=== PATIENT | female | born 1935 | race Two or more races ===

== ENCOUNTER 2019-10-27 12:24 | Outpatient (CLI) | payer OTHER ==
[2019-10-27] MEDS ORDERED: ATORVASTATIN CA80 MG ORAL (15:44)
[2019-10-27] MEDS ORDERED: OYSTER SHELL C1 EA15 PO (15:44)
[2019-10-27] MEDS ORDERED: CARVEDILOL25 MG ORAL (15:44)
[2019-10-27] MEDS ORDERED: ALLOPURINOL300 M1 ORAL (15:44)
[2019-10-27] MEDS ORDERED: POTASSIUM PO (15:44)
[2019-10-27] MEDS ORDERED: VITAMIN D2 PO (15:44)
[2019-10-27] MEDS ORDERED: LEVEMIR100 UNIT/1 SUBQ (15:44)
[2019-10-27] MEDS ORDERED: HYDROCHLOROTH12.5 MG ORAL (15:44)
[2019-10-27] MEDS ORDERED: NOVOLOG100 UNIT/4 SQ (15:44)
[2019-10-27] MEDS ORDERED: FUROSEMIDE80 M1 ORAL (15:44)
[2019-10-27] MEDS ORDERED: AMLODIPINE BESY10 MG ORAL (15:44)
== END 2019-10-27 14:24 | disposition home or self-care (01) ==
DX: K31.9 Disease of stomach and duodenum, unspecified (principal); I10 Essential (primary) hypertension; E11.9 Type 2 diabetes mellitus without complications; E78.00 Pure hypercholesterolemia, unspecified

== ENCOUNTER 2019-11-15 07:13 | Day surgery (SDC) | payer OTHER ==
[~2019-11-15] VITALS: Ht 162.6 cm; Wt 84.4 kg
[2019-11-15] VITALS (10 sets, daily range): BP systolic 129–140; BP diastolic 51–65
[~2019-11-15 07:13] MED LIST: ALLOPURINOL300 M1 ORAL; AMLODIPINE BESY10 MG ORAL; ATORVASTATIN CA80 MG ORAL; CARVEDILOL25 MG ORAL; FUROSEMIDE80 M1 ORAL; HYDROCHLOROTH12.5 MG ORAL; LEVEMIR100 UNIT/1 SUBQ; NOVOLOG100 UNIT/4 SQ; OYSTER SHELL C1 EA15 PO; POTASSIUM PO; VITAMIN D2 PO
[2019-11-15] MEDS ORDERED: LR 1000ml 1,000 ML IVLG SCH ×2 (07:50→08:00)
--- NOTE | 2019-11-15 07:55 | Anethesia Preoperative Eval ---
Anesthesia Pre-op PMH/ROS General Date of Evaluation: Nov 15, 2019 Time of Evaluation: 07:51 Anesthesiologist: walker ASA Score: ASA 4 Mallampati Score Class I : Soft palate, uvula, fauces, pillars visible Class II: Soft palate, uvula, fauces visible Class III: Soft palate, base of uvula visible Class IV: Only hard plate visible Mallampati Classification: Class II Surgeon: antoine Diagnosis: ascites, anemia Surgical Procedure: egd/eus Anesthesia History: none Social History: smoking Family History: no anesthesia problems Allergies: Coded Allergies: No Known Allergies (Unverified , 11/12/19) Medications: see eMAR Patient NPO?: Yes Past Medical History Cardiovascular: Reports: HTN, other - hypercholesterolemia Endocrine: Reports: DM HEENT: Reports: cataract (L), cataract (R) Hematology/Immune: Reports: anemia Musculoskeletal/Integumentary: Reports: OA, other - gout PSxH Narrative: hysterectomy, umbilical hernia repair, cholecystectomy Anesthesia Pre-op Phys. Exam Physician Exam Constitutional: NAD Neurologic: CN 2-12 intact Cardiovascular: RRR Respiratory: CTA Gastrointestinal: S/NT/ND Airway Exam Mallampati Score: Class II MO: limited Neck: flexible TMD: 2fb ROM: limited Anesthesia Pre-op A/P Labs Microbiology Date/Time Source Procedure Growth Status 11/12/19 08:30 Nasopharynx SARS-CoV-2 RdRp Gene Assay - Final Complete Risk Assessment & Plan Assessment: asa4 Plan: mac Status Change Before Surgery: No Pre-Antibiotics Drug: Steph Lopez MD Nov 15, 2019 07:55
[2019-11-15] MEDS ORDERED: Midazolam 2mg/2ml Inj IVP PRN (08:00)
[2019-11-15] MEDS ORDERED: fentaNYL 100 mcg/2 mL IV PRN (08:00)
[2019-11-15] MEDS ORDERED: DiphenhydrAMINE 50mg/ml Inj IVP PRN (08:00)
[2019-11-15] MEDS ORDERED: Atropine Inj 1mg/10ml Syr IV PRN (08:00)
--- NOTE | 2019-11-15 08:33 | Pre-Procedure Note/Attestation ---
Pre-Procedure Note/Attestation Complete Prior to Procedure Planned Procedure: not applicable Procedure Narrative: egd/eus Indications for Procedure Pre-Operative Diagnosis: gastric sub mucosal lesion Attestation I attest that I discussed the nature of the procedure; its benefits; risks and complications; and alternatives (and the risks and benefits of such alternatives ), prior to the procedure, with the patient (or the patient's legal manufacturer's representative). I attest that, if there was a reasonable possibility of needing a blood transfusion, the patient (or the patient's legal manufacturer's representative) was given the [facility] standardized written summary, pursuant to the [place] Blood Safety Act ([place] Health and Safety Code # 1645, as amended). I attest that I re-evaluated the patient just prior to the surgery and that there has been no change in the patient's H&P, except as documented below: Taiwo Ford MD Nov 15, 2019 08:33
--- NOTE | 2019-11-15 08:33 | Short Stay Surgery H&P ---
History of Present Illness History of Present Illness Chief Complaint see recent consult note HPI Sultana Borden is a 84 year old female who was admitted on for Ascites, Anemia Patient History Allergies: Coded Allergies: No Known Allergies (Unverified , 11/12/19) Medication History Scheduled Allopurinol* (Allopurinol*), 300 MG ORAL DAILY, (Reported) Amlodipine Besylate* (Amlodipine Besylate*), 10 MG ORAL DAILY, (Reported) Atorvastatin Calcium* (Lipitor*), 80 MG ORAL BEDTIME, (Reported) Calcium Carbonate/Vitamin D3 (Oyster Shell Calcium + D Tab), 1 EACH PO DAILY, ( Reported) Carvedilol* (Carvedilol*), 25 MG ORAL EVERY 12 HOURS, (Reported) Furosemide* (Lasix*), 80 MG ORAL DAILY, (Reported) Hydrochlorothiazide* (Hydrochlorothiazide*), 12.5 MG ORAL DAILY, (Reported) Insulin Aspart (Novolog), 4 UNIT SQ BID, (Reported) Insulin Detemir (Levemir), 21 SUBQ ACBREAKFAST, (Reported) [Potassium ], 20 MEQ PO DAILY, (Reported) [Vitamin D2], 1.25 MG PO DAILY, (Reported) Physical Exam Vital Signs Last Vital Signs Date Time Temp Pulse Resp B/P (MAP) Pulse Ox O2 Delivery O2 Flow Rate FiO2 11/15/19 08:09 Room Air 11/15/19 07:50 97.7 67 18 129/51 97 Labs Laboratory Tests Test 11/15/19 08:01 POC Whole Blood Glucose 156 MG/DL (74-106) H Plan Attestation Are the patient's medical conditions optimized for surgery? Taiwo Ford MD Nov 15, 2019 08:33
[2019-11-15] MEDS ORDERED: Lidocaine 1% MPF 10mg/ml 5ml ONE (09:00)
[2019-11-15] MEDS ORDERED: LR 1000ml ONE (09:00)
--- NOTE | 2019-11-15 09:19 | Endoscopy Procedure Note ---
Endoscopy Procedure Note General Indication for Procedure: gastric sub mucosal lesion Procedures Performed: EGD, other - EUS Operative Findings/Diagnosis: same Specimen: none Pt Tolerated Procedure Well: Yes Estimated Blood Loss: none Anesthesia Anesthesiologist: connie stapleton Anesthesia: MAC Inserted Devices Implant(s) used?: No GI Core Measures 50 yrs or older w/o bx or poly: Not Applicable 10yrs. F/U recommended: Not Applicable Taiwo Ford MD Nov 15, 2019 09:19
--- NOTE | 2019-11-15 10:30 | Procedure Note ---
DATE OF PROCEDURE: 11/15/2019 SURGEON: Taiwo Ford MD. PROCEDURE: Upper endoscopy and endoscopic ultrasound. ANESTHESIA: Per Dr. Carlisle. INSTRUMENT: Olympus adult upper endoscope and EUS scope. INDICATION: Gastric submucosal lesion. REASON FOR PROCEDURE: The procedure, risks, benefits, and possible consequences, including hemorrhage, aspiration, perforation and infection, and alternative treatments, were explained to the patient/legal guardian by Dr. Taiwo Ford and the patient/legal guardian understood and accepted these risks. DESCRIPTION OF PROCEDURE: After informed consent was obtained and the patient was adequately sedated, Olympus upper endoscope was advanced from mouth into the second portion of the duodenum and retroflexion was performed in the stomach. The patient had evidence of a gastric submucosal lesion seen below the GE junction at about 40 cm from the incisors. This measured roughly about less than a centimeter. At this time, the upper endoscope was retrieved. EUS scope was introduced. Scanning this lesion shows actually evidence of 2 lesions in the same area. Biggest one was 8 mm. 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 No obvious filling defect was seen. These are mostly uniform hypoechoic lesions. SUMMARY OF FINDINGS: 1. Gastritis. 2. Gastric submucosal lesions below the GE junction, largest one about 8 mm, uniform hypoechoic arising from the fourth layer of the gastric wall, muscularis propria, highly suspicious for leiomyoma. RECOMMENDATIONS: Given age of the patient 84 and given this lesions are relatively benign and small, we will recommend no further followup at this time. I want to thank, , for this kind referral. Taiwo Ford M.D. DR: [facility] JOB#: [id number] CC:
--- NOTE | 2019-11-15 12:37 | Immediate Post-Op Evaluation ---
Immediate Post-Op Evalulation Immediate Post-Op Evalulation Procedure: egd/eus Date of Evaluation: Nov 15, 2019 Time of Evaluation: 09:34 IV Fluids: 400ml lr Blood Products: none Estimated Blood Loss: negligible Blood Pressure Systolic: 129 Blood Pressure Diastolic: 65 Pulse Rate: 73 Respiratory Rate: 18 O2 Sat by Pulse Oximetry: 100 Temperature (Fahrenheit): 97.0 Pain Score (1-10): 0 Nausea: No Vomiting: No Complications none Patient Status: awake, reacts, patent Hydration Status: adequate Drug: Steph Lopez MD Nov 15, 2019 12:37
--- NOTE | 2019-11-15 12:39 | 48 Hour Post Anesthesia Eval ---
Post Anesthesia Evaluation Procedure: egd/eus Date of Evaluation: Nov 15, 2019 Time of Evaluation: 09:36 Blood Pressure Systolic: 132 0: 60 Pulse Rate: 72 Respiratory Rate: 18 Temperature (Fahrenheit): 97.0 O2 Sat by Pulse Oximetry: 100 Airway: patent Nausea: No Vomiting: No Pain Intensity: 0 Hydration Status: adequate Cardiopulmonary Status: stable Post-Anesthesia Complications: none Follow-up care needed: N/A Steph Morales MD Nov 15, 2019 12:39
== END 2019-11-15 10:40 | disposition home or self-care (01) ==
LOC: GAS 07:13
DX: K31.9 Disease of stomach and duodenum, unspecified (principal); K29.70 Gastritis, unspecified, without bleeding; F17.200 Nicotine dependence, unspecified, uncomplicated; I10 Essential (primary) hypertension; E78.00 Pure hypercholesterolemia, unspecified; E11.9 Type 2 diabetes mellitus without complications; M19.90 Unspecified osteoarthritis, unspecified site; Z90.710 Acquired absence of both cervix and uterus; Z90.49 Acquired absence of other specified parts of digestive tract; Z79.899 Other long term (current) drug therapy
CPT/HCPCS: 43231; 82962; 94003; J2704; J7120; U0002; 94150

== ENCOUNTER → 2019-11-29 | Outpatient (CLI) | payer MEDICAID ==
[2019-11-29 13:19] VITALS: BP 119/49
--- NOTE | 2019-11-29 13:30 | General Progress Note ---
Assessment/Plan Assessment/Plan: Gastric sub mucosal lesion s/p EUS: SUMMARY OF FINDINGS: 1. Gastritis. 2. Gastric submucosal lesions below the GE junction, largest one about 8 mm, uniform hypoechoic arising from the fourth layer of the gastric wall, muscularis propria, highly suspicious for leiomyoma. add align for bloating RTC prn Subjective ROS Limited/Unobtainable: Yes Allergies: Coded Allergies: No Known Allergies (Unverified , 11/12/19) Objective Last 24 Hour Vital Signs Date Time Temp Pulse Resp B/P (MAP) Pulse Ox O2 Delivery O2 Flow Rate FiO2 11/29/19 13:19 97.5 61 16 119/49 (72) 95 General Appearance: alert EENT: normal ENT inspection Neck: supple Cardiovascular: normal rate Respiratory/Chest: decreased breath sounds Abdomen: normal bowel sounds, non tender, soft Extremities: non-tender Taiwo Ford MD Nov 29, 2019 13:30
== END | disposition home or self-care (01) ==
LOC: PAN 12:59
DX: K29.70 Gastritis, unspecified, without bleeding (principal); R14.0 Abdominal distension (gaseous)